=== PATIENT | male | born 1965 | race Caucasian/White ===

== ENCOUNTER 2019-05-15 17:18 | Observation (INO) ==
[2019-05-15] MEDS ORDERED: 0.9 % Sodium Chloride 1,000 ML IVC ONE (17:53)
[2019-05-15] MEDS ORDERED: Aspirin 325 MG TABLET PO ONE (17:53)
--- NOTE | 2019-05-15 17:59 | Emergency Department Note ---
Disposition Clinical Impression: Episodic weakness Disposition: Admitted As Inpatient Condition: Fair Referrals: Roni Anton DO [Primary Care Provider] - Forms: ED Satisfaction Letter Time of Disposition: 19:15 General Adult HPI - General Chief complaint: ED Dizziness Stated complaint: dizzy, near syncopal episode Time Seen by Provider: 05/15/19 17:37 Source: patient, EMS Mode of arrival: EMS Limitations: no limitations Nursing Notes Reviewed: Yes Vital Signs Reviewed: Yes - History of Present Illness HPI Narrative: Patient states he was at work in a meeting. While sitting at the meeting he felt a wave of weakness. He denies spinning sensation. He does not specifically say lightheadedness but rather just a wave of weakness. It lasted about 2 minutes and then went away. He got up and went to his office and was talking to a coworker about it and as he was talking with a coworker about it he says the symptoms returned. Best what precipitated the visit to the clinic at the plant and subsequent transfer here to the ER. He is asymptomatic on arrival here in the department. He denies having been sick in any other way over the past few days. He has not had to reduce his activity level due to any weakness or other symptoms. When he had episode while in the meeting, he said he was clammy. There was no associated chest pain or palpitations of the heart or shortness of breath or any other symptoms. Pt Subjective Complaint: Weakness episode Onset (ago): Just [employer] Location: other (Generalized) Pain Scale: 0 Consistency: intermittent Improves with: nothing Worsens with: nothing Associated symptoms: Reports: diaphoresis Treatments Prior to Arrival: none - Related Data Home Medications Medication Instructions Recorded Confirmed No Known Home Drugs 05/15/19 05/15/19 Allergies Allergy/AdvReac Type Severity Reaction Status Date / Time Sulfa (Sulfonamide Allergy Swelling Verified 05/15/19 17:19 Antibiotics) of the Eye All systems ED: reviewed and negative except as stated. Constitutional: Denies: fever, chills Eyes: Denies: vision change ENT ED: Denies: ear pain, throat pain, congestion Cardiovascular: Denies: chest pain, palpitations Respiratory: Denies: cough, dyspnea, wheezes Gastrointestinal: Denies: abdominal pain, nausea, vomiting, diarrhea Integumentary: Denies: rash Neurological: Denies: headache Past Medical History - Past Medical History Attestation: Yes The following information was validated with the patient. Source: patient, obtained from family, nursing notes reviewed Medical history: Reports: no medical history Psychiatric history: Reports: no psych history - Social History Smoking Status: Never smoker Smokeless Tobacco Status: No Alcohol use: Reports: none Drug use: Reports: none Physical Exam - General Limitations: no limitations General appearance: alert, in no apparent distress - Head Head exam: atraumatic, normocephalic, normal inspection - Eye Eye exam: Present: normal appearance, PERRL, EOMI. Absent: scleral icterus, conjunctival injection - ENT ENT exam: normal exam, normal oropharynx, mucous membranes moist, TM's normal bilaterally, normal external ear exam - Neck Neck exam: Present: normal inspection, full ROM, trachea midline. Absent: tenderness, meningismus, thyromegaly - Chest Chest inspection: Present: normal inspection, symmetric chest wall rise. Absent: tenderness - Respiratory Respiratory exam: Present: normal lung sounds bilaterally. Absent: respiratory distress, wheezes - Cardiovascular Cardiovascular exam: Present: regular rate, normal rhythm, normal heart sounds - Abdominal Exam Abdominal exam: Present: soft, Non-Tender, normal bowel sounds - Extremities Exam Extremities exam: Present: normal inspection. Absent: tenderness, pedal edema, calf tenderness - Neurological Exam Neurological exam: Present: alert, oriented X3. Absent: motor sensory deficit - Psychiatric Psychiatric exam: Present: normal affect, normal mood - Skin Skin exam: Present: warm, dry. Absent: rash Course Course Narrative: Patient presents with episode that occurred while sitting in a meeting at work. He been actually fine up until that point. He has never had any symptoms like this before. He just felt a wave come over him of weakness and said he felt clammy. He does not describe any other symptoms associated with that. He is asymptomatic on arrival to the emergency department. He says they did an EKG at the plant that he says they told him was normal but we do not have a copy of that EKG. Physical examination is unremarkable. I will initiate a workup on the patient. - Reevaluation(s) Reevaluation #1: I was just called over to the bedside by stated the patient is having a recurrence of the symptoms. When I go to the bedside the patient actually is describing tingling in his hands and feet. That makes me think more along the lines of hyperventilation and anxiety. We did a 12-lead EKG while the patient was having no symptoms and it did not reveal any obvious acute ischemic changes. His original EKG on arrival when he was asymptomatic was also unremarkable and there is no change between the 2 EKGs. Time: 18:03 Reevaluation #2: Patient's workup and the being negative. He is remained asymptomatic except for that one episode early on in the stay. The issue is that we cannot be sure that his is not a spider and cardiac event causing his symptoms. At this point we do not have any other explanation although hyperventilation is possibility. His labs look normal. D-dimer is negative. Chest x-ray is clear. EKGs are fine. I discussed the case with the hospitalist about a minute and the patient to the hospital for serial enzymes and monitoring. Dr. Kothari accepted the patient. I discussed this with the patient and he agrees to stay here overnight. I will arrange the admission. Time: 19:14 - Consultations Consultation #1: Dr. Kothari, hospitalist - I discussed the case with the hospitalist He accepted the patient for admission for serial enzymes and monitoring. Time: 19:13 Vital Signs Temperature 98.1 F 05/15/19 17:20 Pulse Rate 70 05/15/19 17:20 Respiratory Rate 18 05/15/19 17:20 Blood Pressure 132/82 05/15/19 17:20 O2 Sat by Pulse Oximetry 96 05/15/19 17:20 Temperature 98.1 F 05/15/19 17:20 Pulse Rate 69 05/15/19 18:49 Respiratory Rate 12 05/15/19 18:49 Blood Pressure 149/87 05/15/19 18:49 O2 Sat by Pulse Oximetry 98 05/15/19 18:49 Oxygen Delivery Oxygen Delivery Room Air Medical Decision Making - Medical Records No old records to review. - Lab Data Lab results reviewed: Yes I reviewed the patient's lab results. Result diagrams: 05/15/19 18:07 05/15/19 18:07 Lab Results 05/15/19 05/15/19 05/15/19 Range/Units 18:07 18:07 18:07 WBC 7.9 (4.3-11.1) K/mcL RBC 4.72 (4.19-5.50) M/mcL Hgb 14.7 (12.9-16.9) g/dL Hct 42.6 (37.5-50.1) % MCV 90.3 (83.0-100.0) fL MCH 31.1 (28.0-33.3) pg MCHC 34.5 (31.6-35.5) g/dL RDW 11.8 (11.5-14.5) % Plt Count 203 (140-400) K/mcL MPV 9.1 L (9.4-12.4) fL Immature Gran % 0.5 (0-4) % Seg Neutrophils % 73.4 % Lymphocytes % 18.0 % Monocytes % 6.6 % Eosinophils % 1.1 % Basophils % 0.4 % Neutrophils # 5.8 (1.6-8.9) K/mcL Lymphocytes # 1.4 (0.6-4.6) K/mcL Monocytes # 0.5 (0.0-1.3) K/mcL Eosinophils # 0.1 (0.0-0.6) K/mcL Basophils # 0.0 (0.0-0.2) K/mcL D-Dimer 231 (0-500) ng/mLFEU Sodium 137 (136-145) mEq/L Potassium 3.6 (3.5-5.1) mEq/L Chloride 102 (98-107) mEq/L Carbon Dioxide 28 (23-29) mEq/L BUN 11 (6-20) mg/dL Creatinine 0.97 (0.70-1.30) mg/dL Est GFR ( Amer) > 60 (> 60) Est GFR (Non-Af Amer) > 60 (> 60) BUN/Creatinine Ratio 11 (6-26) Glucose 100 (70-105) mg/dL Calculated Osmolality 283 (280-300) Calcium 8.9 (8.6-10.3) mg/dL Troponin I (< 0.04) ng/mL B-Natriuretic Peptide (Less than 100) pg/mL Urine Color (Yellow) Urine Clarity (Clear) Urine pH (5.0-8.0) pH Units Ur Specific [place] (1.010-1.025) Urine Protein (Neg-Trace) mg/dL Urine Glucose (UA) (Normal) mg/dL Urine Ketones (Negative) mg/dL Urine Blood (Negative) Urine Nitrite (Negative) Urine Bilirubin (Negative) Urine Urobilinogen (Normal) mg/dL Ur Leukocyte Esterase (Negative) Ur Culture Indicated? (NO) 05/15/19 05/15/19 05/15/19 Range/Units 18:07 18:07 18:48 WBC (4.3-11.1) K/mcL RBC (4.19-5.50) M/mcL Hgb (12.9-16.9) g/dL Hct (37.5-50.1) % MCV (83.0-100.0) fL MCH (28.0-33.3) pg MCHC (31.6-35.5) g/dL RDW (11.5-14.5) % Plt Count (140-400) K/mcL MPV (9.4-12.4) fL Immature Gran % (0-4) % Seg Neutrophils % % Lymphocytes % % Monocytes % % Eosinophils % % Basophils % % Neutrophils # (1.6-8.9) K/mcL Lymphocytes # (0.6-4.6) K/mcL Monocytes # (0.0-1.3) K/mcL Eosinophils # (0.0-0.6) K/mcL Basophils # (0.0-0.2) K/mcL D-Dimer (0-500) ng/mLFEU Sodium (136-145) mEq/L Potassium (3.5-5.1) mEq/L Chloride (98-107) mEq/L Carbon Dioxide (23-29) mEq/L BUN (6-20) mg/dL Creatinine (0.70-1.30) mg/dL Est GFR ( Amer) (> 60) Est GFR (Non-Af Amer) (> 60) BUN/Creatinine Ratio (6-26) Glucose (70-105) mg/dL Calculated Osmolality (280-300) Calcium (8.6-10.3) mg/dL Troponin I < 0.03 (< 0.04) ng/mL B-Natriuretic Peptide 8 (Less than 100) pg/mL Urine Color Yellow (Yellow) Urine Clarity Clear (Clear) Urine pH 7.0 (5.0-8.0) pH Units Ur Specific [place] 1.015 (1.010-1.025) Urine Protein Negative (Neg-Trace) mg/dL Urine Glucose (UA) Normal (Normal) mg/dL Urine Ketones Negative (Negative) mg/dL Urine Blood Negative (Negative) Urine Nitrite Negative (Negative) Urine Bilirubin Negative (Negative) Urine Urobilinogen Normal (Normal) mg/dL Ur Leukocyte Esterase Negative (Negative) Ur Culture Indicated? NO (NO) - Radiology Data Radiology results reviewed: Yes I reviewed the patient's radiology results. - EKG Data EKG #1 EKG attestation: Yes I reviewed and interpreted this EKG. EKG results narrative: Twelve-lead EKG #2 performed at 5:55 PM while the patient was feeling symptoms. Ordered, reviewed and interpreted by ED physician shows sinus rhythm at a rate of 70. Normal axis. Good hour progression across the precordium. No acute ischemic changes. Nonspecific intraventricular conduction delay noted again. No change from the one done just a half hour earlier. EKG #2 EKG attestation: Yes I reviewed and interpreted this EKG. EKG results narrative: Twelve-lead EKG #2 performed at 5:55 PM while the patient was feeling symptoms. Ordered, reviewed and interpreted by ED physician shows sinus rhythm at a rate of 70. Normal axis. Good hour progression across the precordium. No acute ischemic changes. Nonspecific intraventricular conduction delay noted again. No change from the one done just a half hour earlier.
[2019-05-15 18:14] LABS: Basophils % 0.4 %; Eosinophils # 0.1 K/mcL (0.0-0.6); Eosinophils % 1.1 %; Hematocrit 42.6 % (37.5-50.1); Hemoglobin 14.7 g/dL (12.9-16.9); Immature Granulocytes % 0.5 % (0-4); Lymphocytes # 1.4 K/mcL (0.6-4.6); Mean Corpuscular HGB Conc 34.5 g/dL (31.6-35.5); Mean Corpuscular Hemoglobin 31.1 pg (28.0-33.3); Mean Corpuscular Volume 90.3 fL (83.0-100.0); Mean Platelet Volume 9.1 fL (9.4-12.4); Monocytes # 0.5 K/mcL (0.0-1.3); Monocytes % 6.6 %; Neutrophils # 5.8 K/mcL (1.6-8.9); Platelet Count 203 K/mcL (140-400); Red Blood Count 4.72 M/mcL (4.19-5.50); Red Cell Distribution Width 11.8 % (11.5-14.5); Segmented Neutrophils % 73.4 %; White Blood Count 7.9 K/mcL (4.3-11.1)
[2019-05-15 18:34] LABS: BUN/Creatinine Ratio 11 (6-26); Blood Urea Nitrogen 11 mg/dL (6-20); Calcium 8.9 mg/dL (8.6-10.3); Carbon Dioxide 28 mEq/L (23-29); Chloride 102 mEq/L (98-107); Glucose 100 mg/dL (70-105); Osmolality,Calculated 283 (280-300); Potassium 3.6 mEq/L (3.5-5.1); Sodium 137 mEq/L (136-145); eGFR For African Americans > 60 (> 60); eGFR For Non-African Americans > 60 (> 60)
[2019-05-15 18:55] LABS: Bilirubin,Urine Negative (Negative); Blood,Urine Negative (Negative); Clarity,Urine Clear (Clear); Color,Urine Yellow (Yellow); Glucose,Urine (UA) Normal (Normal); Ketones,Urine Negative (Negative); Leukocyte Esterase,Urine Negative (Negative); Nitrite,Urine Negative (Negative); Protein,Urine Negative (Neg-Trace); Specific Gravity,Urine 1.015 (1.010-1.025); Urobilinogen,Urine Normal (Normal)
[2019-05-15] MEDS ORDERED: Naloxone 0.4 MG/ML INJ IVP PRN (20:18)
--- NOTE | 2019-05-16 08:43 | Electrocardiograph Report ---
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
[2019-05-16] MEDS: Aspirin Enteric Coated 81 MG Tablet PO SCH ×2 (09:11→10:53)
--- NOTE | 2019-05-16 10:56 | Internal Med History&Physical ---
Date of Encounter: 05/16/19 Time of Encounter: 10:15 Assessment and Plan (1) Lightheadedness Current visit: Yes Status: Acute Etiology not obvious. Orthostatic vital signs will be checked. Telemetry monitoring has show no abnormality so far. Repeat cardiac enzymes were ordered through emergency room. Internal Medicine - H&P: HPI Chief complaint: Weakness, lightheaded Admitted From: Emergency Dept Plans for Post Hospital Care: Home History of present illness: Mr. Calvert is a 54 year old male who came to emergency room stating while sitting at a meeting a few hours earlier at work he had sudden onset of weakness and lightheadedness. He denies pain, vertigo, or near syncope. After 2-3 minutes symptoms resolved and he felt back to baseline. Approximately 20 minutes later a similar episode occurred. He went to the on site clinic at workplace and was directed to emergency room. He was evaluated and admitted to [facility] floor for ongoing care needs. He states he feels back to his baseline now. He denies previous similar episodes. Cardiovascular history is negative for hypertension MD heart failure angina DVT or pulmonary embolus. Neurologic history is negative for stroke seizures or syncopal episodes. Past Med Surg Social Fam HX - Past Medical History Medical history: no medical history Psychiatric history: no psych history - Social History Smoking Status: Never smoker Smokeless Tobacco Status: No Alcohol use: none Drug use: none - Family History Mother Living Status: Cause of : unknown Hx Family Cardiac Disorders: No Hx Family Respiratory Disorders: No Hx Family Cancer: No Hx Family GI Disorders: No Hx Family Genitourinary Disorders: No Hx Family Endocrine Disorder: No Hx Family Musculoskeletal Disorders: No Hx Family Neuromuscular Disorders: No Hx Family Neurologic Disorders: No Hx Family HEENT Disorders: No Hx Family Autoimmune Disorders: No Hx Family Reproductive Disorders: No Hx Family Psychosocial Disorders: No Hx Family Medical Disorders: No Internal Medicine - H&P: Meds No Known Home Drugs 05/15/19 [History] Allergy/AdvReac Type Severity Reaction Status Date / Time Sulfa (Sulfonamide Allergy Swelling Verified 05/15/19 17:19 Antibiotics) of the Eye All Systems PM: A 10-system review of systems was performed and is negative for pertinent findings except as documented above in the HPI. Review of systems: Gen.: He states his weight has been stable for several months Cardiovascular: As per history of present illness Respiratory: He is a lifelong nonsmoker and denies chronic lung disease. He has not been tested for RONNI. GI: Denies disorders of his liver gallbladder or exocrine pancreas : He denies hematuria dysuria or kidney stones Neurologic: He denies large distribution strokes or seizures. Endocrine: He has hyperlipidemia. He denies diabetes or thyroid disease. Hematology/oncology: He denies blood disorders cancers or anemia Psychiatric: He denies anxiety depression or other mental health issues Mus[place] skeletal: He denies arthritis gout or other bone joint or muscle disorders. - Constitutional Vitals: Temp Pulse Resp BP Pulse Ox 97.8 F 65 17 124/82 98 05/16/19 07:21 05/16/19 07:21 05/16/19 07:21 05/16/19 07:21 05/16/19 07:21 Exam: Gen.: He is a well-developed overweight male lying in bed who appears in no acute distress HEENT: Head is atraumatic and normocephalic. Eyes: EOMI. There is no scleral icterus. Mouth: Mucosa is moist. Neck: Supple and nontender. There is no thyromegaly or adenopathy noted. Heart: Regular without murmurs gallops or ectopics Lungs: No wheezes or crackles are heard. Abdomen: Soft and nontender. No masses or guarding are noted. Extremities: There is no cyanosis edema or clubbing noted. Dorsalis pedis and posterior tibial pulses are 2 over 2 bilaterally. Neurologic: Mental status: He is talkative and a good historian. Cranial nerves: Smile is symmetric. Forehead wrinkles bilaterally. Tongue protrudes midline. EOMI. Motor: There is no pronator drift. Cerebellar: Finger to nose is intact bilaterally. Skin: Warm and dry Internal Med - H&P Results - Labs CBC & Chem 7: 05/15/19 18:07 05/15/19 18:07 Labs: Short CBC 05/15/19 Range/Units 18:07 WBC 7.9 (4.3-11.1) K/mcL Hgb 14.7 (12.9-16.9) g/dL Hct 42.6 (37.5-50.1) % Plt Count 203 (140-400) K/mcL Neutrophils # 5.8 (1.6-8.9) K/mcL BMP 05/15/19 18:07 Sodium 137 Potassium 3.6 Chloride 102 Carbon Dioxide 28 BUN 11 Creatinine 0.97 Glucose 100 Calcium 8.9 Cardiac Enzymes 05/15/19 05/16/19 05/16/19 Range/Units 18:07 00:08 06:20 Troponin I < 0.03 < 0.03 < 0.03 (< 0.04) ng/mL Urine 05/15/19 Range/Units 18:48 Urine Color Yellow (Yellow) Urine Clarity Clear (Clear) Urine pH 7.0 (5.0-8.0) pH Units Ur Specific [place] 1.015 (1.010-1.025) Urine Protein Negative (Neg-Trace) mg/dL Urine Glucose (UA) Normal (Normal) mg/dL - Impressions ITS Impressions Chest X-Ray 05/15/19 17:52 IMPRESSION: No acute abnormality. D/ / Ricki Ndiaye MD / Ricki Ndiaye MD Interpreting Provider: Ricki Ndiaye MD
[2019-05-16 10:58] VITALS: BP 138/84
--- NOTE | 2019-05-16 11:27 | Discharge Summary ---
Orders not resulted at time of discharge: Pending orders 05/15/19 17:52 EKG [ECG 12 lead ECG] [ECG] Stat 05/16/19 12:07 Troponin I Q6H Date of Encounter: 05/16/19 Time of Encounter: 11:15 - Discharge Diagnosis (1) Lightheadedness Priority: Primary Status: Acute Hospital course: Mr. Calvert is a 54 year old male who came to emergency room stating while sitting at a meeting a few hours earlier at work he had sudden onset of weakness and lightheadedness. He denies pain, vertigo, or near syncope. After 2-3 minutes symptoms resolved and he felt back to baseline. Approximately 20 minutes later a similar episode occurred. He went to the on site clinic at workplace and was directed to emergency room. He was evaluated and admitted to [facility] for ongoing care needs. Initial orders were written by the emergency room physician. I saw him on May 16 and performed a history and physical. Repeat cardiac enzymes show no evidence of myocardial damage. When I saw him I did not think his symptoms were likely myocardial ischemic origin. Orthostatic vital signs showed no significant change in heart rate or blood pressure. Telemetry remained stable. Chest x-ray and EKG were unremarkable. The etiology of his symptomatic events was not determined with certainty. He felt stable for discharge home May 16. I encouraged him to come back to emergency room if symptoms recurred or wo rsened. He will follow with his PCP Dr. Anton within 1 week. - Time Spent with Patient Total time spent providing and/or coordinating discharge services: - Discharge Medications Prescriptions: Continued No Known Home Drugs 1 each .ROUTE AD each Home Medications: No Known Home Drugs 05/15/19 [History] Allergies/Adverse Reactions: Allergy/AdvReac Type Severity Reaction Status Date / Time Sulfa (Sulfonamide Allergy Swelling Verified 05/15/19 17:19 Antibiotics) of the Eye Date of admission: 05/15/19 19:25 Primary care physician: Roni Anton, - Constitutional Vitals: Temp Pulse Resp BP Pulse Ox 97.8 F 65 17 138/84 98 05/16/19 07:21 05/16/19 07:21 05/16/19 07:21 05/16/19 10:57 05/16/19 07:21 - Patient Status Disposition: Home, Self-Care Condition: Fair - Discharge Instructions Follow Up With: Roni Anton DO [Primary Care Provider] - 1 week - Diet and Activity Activity: resume usual activities as tolerated Diet: advance to your usual diet
--- NOTE | 2019-05-16 12:07 | Electrocardiograph Report ---
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
--- NOTE | 2019-05-17 12:37 | Electrocardiograph Report ---
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
== END 2019-05-16 12:05 | disposition home or self-care (01) ==
LOC: EMEROOPIK 17:18 → INPPIK 17:18 → MERGE 19:25 → INPPIK 20:12
PROVIDERS: ADMIT Internal Medicine; ATTEND Internal Medicine